=== PATIENT | female | born 1940 | race Two or more races ===

== ENCOUNTER 2019-12-20 15:24 | Inpatient (IN) ==
[2019-12-20] MEDS ORDERED: ACETAMINOPHEN 325 MG TABLET PO PRN (15:32)
[2019-12-20] MEDS ORDERED: ONDANSETRON 4 MG/2 ML VIAL IV PRN (15:32)
[2019-12-20 16:38] LABS: Basophils # 0.1 10*3/uL (0.0-0.2); Basophils % 0.4 % (0.0-0.8); Eosinophils # 0.1 10*3/uL (0.0-0.87); Eosinophils % 0.4 % (0.00-10.9); Hemoglobin 7.4 GM/DL (12.0-16.0); Immature Granulocytes % 1.2 %; Immature Granulocytes Absolute 0.22 #; Lymphocytes # 1.7 10*3/uL (1.4-4.0); Lymphocytes % 9.2 % (21.3-54.2); Mean Corpuscular HGB Conc 28.5 GM/DL (32-36); Mean Platelet Volume 12.2 FL (9.6-12.0); Monocytes % 3.9 % (1.7-12.7); Neutrophils % 84.9 % (38.7-73.9); Platelet Count 138 T/CUMM (130-400); Red Blood Count 2.43 MC/CUMM (3.8-5.5); Red Cell Distribution Width 18.2 % (9.3-17.3); White Blood Count 18.9 T/CUMM (4-12)
[2019-12-20] MEDS: SODIUM CHLORIDE 0.9% 1,000 ML IV SCH ×2 (16:53→21:17)
[2019-12-20 17:00] LABS: Albumin 1.9 G/DL (3.4-5.0); Bilirubin,Total 0.5 MG/DL (0.2-1.0); Calcium 7.7 MG/DL (8.5-10.1); Osmolality,Calculated 301.4 MOS/KG (273-304); Total Protein 5.3 G/DL (6.4-8.3)
[2019-12-20] MEDS ORDERED: SODIUM CHLORIDE 0.9% 1,000 ML IV PRN (17:06)
[2019-12-20] MEDS: DOCUSATE SODIUM 100 MG CAPSULE PO SCH (21:16)
[2019-12-21 06:50] LABS: Basophils # 0.1 10*3/uL (0.0-0.2); Basophils % 0.4 % (0.0-0.8); Eosinophils # 0.2 10*3/uL (0.0-0.87); Eosinophils % 0.9 % (0.00-10.9); Hematocrit 32.2 VOL% (35.7-47.0); Immature Granulocytes % 1.2 %; Lymphocytes # 2.1 10*3/uL (1.4-4.0); Lymphocytes % 12.5 % (21.3-54.2); Mean Corpuscular HGB Conc 31.7 GM/DL (32-36); Mean Corpuscular Volume 97.3 FL (87-102); Mean Platelet Volume 11.7 FL (9.6-12.0); Monocytes % 6.5 % (1.7-12.7); Neutrophils % 78.5 % (38.7-73.9); Red Cell Distribution Width 17.3 % (9.3-17.3); White Blood Count 16.9 T/CUMM (4-12)
[2019-12-21 06:52] LABS: Red Blood Count 3.31 MC/CUMM (3.8-5.5)
[2019-12-21 06:53] LABS: Hemoglobin 10.2 GM/DL (12.0-16.0); Platelet Count 104 T/CUMM (130-400)
[2019-12-21 09:01] LABS: Basophils # 0.1 10*3/uL (0.0-0.2); Basophils % 0.4 % (0.0-0.8); Eosinophils # 0.2 10*3/uL (0.0-0.87); Eosinophils % 0.9 % (0.00-10.9); Hematocrit 33.3 VOL% (35.7-47.0); Hemoglobin 10.4 GM/DL (12.0-16.0); Immature Granulocytes % 0.9 %; Immature Granulocytes Absolute 0.15 #; Lymphocytes # 1.7 10*3/uL (1.4-4.0); Lymphocytes % 10.4 % (21.3-54.2); Mean Corpuscular HGB Conc 31.2 GM/DL (32-36); Mean Corpuscular Volume 97.1 FL (87-102); Monocytes % 4.6 % (1.7-12.7); Neutrophils % 82.8 % (38.7-73.9); Platelet Count 103 T/CUMM (130-400); Red Blood Count 3.43 MC/CUMM (3.8-5.5); Red Cell Distribution Width 17.4 % (9.3-17.3); White Blood Count 16.2 T/CUMM (4-12)
[2019-12-21 09:21] LABS: Acanthocytes Few
[2019-12-21 09:22] LABS: Anisocytosis 1+; Polychromasia Slight
[2019-12-21 09:23] LABS: Platelet Estimate Decreased
[2019-12-21 09:35] LABS: Thyroid Stimulating Hormone 5.05 uIU/ml (0.358-3.74)
[2019-12-21 09:38] LABS: Calcium 7.5 MG/DL (8.5-10.1); Osmolality,Calculated 298.3 MOS/KG (273-304)
[2019-12-21] MEDS: SODIUM CHLORIDE 0.9% 1,000 ML IV SCH ×3 (09:45→17:33)
[2019-12-21] MEDS: PIPERACILLIN/TAZOBACTAM 3,375 MG in SODIUM CHLORIDE 0.9% 100 ML IV SCH ×2 (09:46→20:28)
[2019-12-21] MEDS: PANTOPRAZOLE 40 MG TABLET PO SCH (09:46)
[2019-12-21] MEDS: DOCUSATE SODIUM 100 MG CAPSULE PO SCH ×2 (09:46→20:28)
[2019-12-21 09:59] LABS: Sedimentation Rate-Westergren 34 MM/HR (0-30)
[2019-12-21 10:03] LABS: Folate 16.4 NG/ML (5.4-24.0); Vitamin B12 1275 PG/ML (211-911)
[2019-12-21 16:52] LABS: Bacteria,Urine Occasional /HPF (Few); Bilirubin,Urine Negative (Negative); Blood, Urine Moderate mg/dL (Negative); Glucose,Urine (UA) Negative (Negative); Ketones,Urine Negative (Negative); Mucus,Urine Occasional /LPF (Occasional); Nitrite,Urine Negative (Negative); Protein,Urine Negative; RBC,Urine 4 /HPF (0-4); Squamous Epithelial Cell,Urine Occasional /HPF (0-10); Urine Appearance Slightly Hazy (Clear); Urine Color Yellow (Yellow); Urine Specific Gravity 1.014 (1.001-1.035); Urine Urobilinogen < 2.0 EU/DL (0.2-1.0); WBC,Urine 5 /HPF (0-6)
[2019-12-22] MEDS: SODIUM CHLORIDE 0.9% 1,000 ML IV SCH ×4 (02:27→21:11)
[2019-12-22 04:46] LABS: Basophils # 0.1 10*3/uL (0.0-0.2); Basophils % 0.5 % (0.0-0.8); Eosinophils # 0.2 10*3/uL (0.0-0.87); Eosinophils % 1.4 % (0.00-10.9); Hematocrit 30.7 VOL% (35.7-47.0); Hemoglobin 9.4 GM/DL (12.0-16.0); Immature Granulocytes % 0.8 %; Lymphocytes # 1.7 10*3/uL (1.4-4.0); Lymphocytes % 12.5 % (21.3-54.2); Mean Corpuscular HGB Conc 30.6 GM/DL (32-36); Mean Corpuscular Volume 97.8 FL (87-102); Mean Platelet Volume 11.5 FL (9.6-12.0); Monocytes % 6.2 % (1.7-12.7); Neutrophils % 78.6 % (38.7-73.9); Platelet Count 110 T/CUMM (130-400); Red Blood Count 3.14 MC/CUMM (3.8-5.5); White Blood Count 13.3 T/CUMM (4-12)
[2019-12-22 05:05] LABS: Calcium 7.1 MG/DL (8.5-10.1); Osmolality,Calculated 299.8 MOS/KG (273-304)
[2019-12-22] MEDS: PIPERACILLIN/TAZOBACTAM 3,375 MG in SODIUM CHLORIDE 0.9% 100 ML IV SCH (09:32)
[2019-12-22] MEDS ORDERED: LIDOCAINE 2% 5 ML VIAL ONE (10:00)
[2019-12-22] MEDS ORDERED: ETOMIDATE 20 MG/10 ML VIAL IV ONE (10:00)
[2019-12-22] MEDS: DOCUSATE SODIUM 100 MG CAPSULE PO SCH ×2 (10:00→21:13)
[2019-12-22 11:44] LABS: Hemoglobin A1 (Alkaline) 97.8 % (96.5-98.5); Hemoglobin A2 (Alkaline) 2.2 % (1.5-3.5)
[2019-12-22] MEDS: LACTATED RINGERS 1,000 ML IV SCH (13:20)
[2019-12-22] MEDS: PANTOPRAZOLE 40 MG TABLET PO SCH (16:28)
[2019-12-23] MEDS: PIPERACILLIN/TAZOBACTAM 3,375 MG in SODIUM CHLORIDE 0.9% 100 ML IV SCH ×2 (00:21→12:41)
[2019-12-23] MEDS: SODIUM CHLORIDE 0.9% 1,000 ML IV SCH ×3 (03:00→18:47)
[2019-12-23 04:25] LABS: Basophils # 0.1 10*3/uL (0.0-0.2); Basophils % 0.6 % (0.0-0.8); Eosinophils # 0.2 10*3/uL (0.0-0.87); Eosinophils % 1.6 % (0.00-10.9); Hematocrit 36.9 VOL% (35.7-47.0); Immature Granulocytes % 0.6 %; Immature Granulocytes Absolute 0.08 #; Lymphocytes # 1.4 10*3/uL (1.4-4.0); Lymphocytes % 11.2 % (21.3-54.2); Mean Corpuscular HGB Conc 29.8 GM/DL (32-36); Mean Corpuscular Volume 102.8 FL (87-102); Mean Platelet Volume 11.1 FL (9.6-12.0); Monocytes % 7.5 % (1.7-12.7); Neutrophils % 78.5 % (38.7-73.9); Platelet Count 111 T/CUMM (130-400); Red Blood Count 3.59 MC/CUMM (3.8-5.5); Red Cell Distribution Width 18.3 % (9.3-17.3); White Blood Count 12.8 T/CUMM (4-12)
[2019-12-23 04:38] LABS: Calcium 7.3 MG/DL (8.5-10.1); Osmolality,Calculated 296.6 MOS/KG (273-304)
[2019-12-23] MEDS: LACTATED RINGERS 1,000 ML IV SCH (08:22)
[2019-12-23] MEDS: PANTOPRAZOLE 40 MG TABLET PO SCH (09:10)
[2019-12-23] MEDS: DOCUSATE SODIUM 100 MG CAPSULE PO SCH ×2 (09:48→22:04)
[2019-12-24] MEDS: PIPERACILLIN/TAZOBACTAM 3,375 MG in SODIUM CHLORIDE 0.9% 100 ML IV SCH ×2 (02:30→12:30)
[2019-12-24] MEDS: LACTATED RINGERS 1,000 ML IV SCH (09:14)
[2019-12-24] MEDS: PANTOPRAZOLE 40 MG TABLET PO SCH (09:20)
[2019-12-24] MEDS: DOCUSATE SODIUM 100 MG CAPSULE PO SCH ×2 (09:21→21:54)
[2019-12-24] MEDS: SODIUM CHLORIDE 0.9% 1,000 ML IV SCH ×2 (09:22→10:21)
[2019-12-25] MEDS: SODIUM CHLORIDE 0.9% 1,000 ML IV SCH ×3 (00:30→14:04)
[2019-12-25] MEDS: PIPERACILLIN/TAZOBACTAM 3,375 MG in SODIUM CHLORIDE 0.9% 100 ML IV SCH (00:30)
[2019-12-25 06:21] LABS: Basophils # 0.1 10*3/uL (0.0-0.2); Basophils % 0.7 % (0.0-0.8); Eosinophils # 0.3 10*3/uL (0.0-0.87); Eosinophils % 3.2 % (0.00-10.9); Hematocrit 31.6 VOL% (35.7-47.0); Hemoglobin 9.9 GM/DL (12.0-16.0); Immature Granulocytes % 0.6 %; Immature Granulocytes Absolute 0.05 #; Lymphocytes # 1.6 10*3/uL (1.4-4.0); Lymphocytes % 19.6 % (21.3-54.2); Mean Corpuscular HGB Conc 31.3 GM/DL (32-36); Mean Corpuscular Volume 96.6 FL (87-102); Mean Platelet Volume 10.7 FL (9.6-12.0); Monocytes % 8.3 % (1.7-12.7); Neutrophils % 67.6 % (38.7-73.9); Platelet Count 107 T/CUMM (130-400); Red Blood Count 3.27 MC/CUMM (3.8-5.5); Red Cell Distribution Width 18.8 % (9.3-17.3); White Blood Count 8.1 T/CUMM (4-12)
[2019-12-25] MEDS: LACTATED RINGERS 1,000 ML IV SCH (08:40)
[2019-12-25] MEDS ORDERED: CIPROFLOXACIN 500 MG TABLET PO SCH (09:00)
[2019-12-25] MEDS: DOCUSATE SODIUM 100 MG CAPSULE PO SCH (09:39)
[2019-12-25] MEDS: PANTOPRAZOLE 40 MG TABLET PO SCH (09:39)
[2019-12-25 11:48] LABS: Calcium 7.8 MG/DL (8.5-10.1); Osmolality,Calculated 288.7 MOS/KG (273-304)
[2019-12-25 11:50] VITALS: BP 102/57
== END 2019-12-25 15:32 | disposition swing bed (61) | DRG 369 ==
LOC: N.5E 16:09
PROVIDERS: ADMIT Internal Medicine; ATTEND Internal Medicine

== ENCOUNTER 2020-03-12 10:56 | Inpatient (IN) ==
[2020-03-12] MEDS ORDERED: LORazepam 2 MG/1 ML VIAL IV STA (11:08)
[2020-03-12 11:18] LABS: Basophils # 0.1 10*3/uL (0.0-0.2); Basophils % 0.9 % (0.0-0.8); Eosinophils # 0.2 10*3/uL (0.0-0.87); Eosinophils % 2.5 % (0.00-10.9); Hematocrit 35.4 VOL% (35.7-47.0); Immature Granulocytes % 0.9 %; Immature Granulocytes Absolute 0.07 #; Lymphocytes # 2.8 10*3/uL (1.4-4.0); Lymphocytes % 35.2 % (21.3-54.2); Mean Corpuscular HGB Conc 31.1 GM/DL (32-36); Mean Corpuscular Volume 95.7 FL (87-102); Mean Platelet Volume 9.8 FL (9.6-12.0); Monocytes % 10.4 % (1.7-12.7); Neutrophils % 50.1 % (38.7-73.9); Platelet Count 152 T/CUMM (130-400); Red Cell Distribution Width 15.4 % (9.3-17.3); White Blood Count 7.9 T/CUMM (4-12)
[2020-03-12] MEDS ORDERED: levETIRAcetam 500 MG/5 ML VIAL IV ONE (11:30)
[2020-03-12 11:42] LABS: Albumin 2.6 G/DL (3.4-5.0); Bilirubin,Total 0.8 MG/DL (0.2-1.0); Calcium 8.3 MG/DL (8.5-10.1); Osmolality,Calculated 281.3 MOS/KG (273-304); Total Protein 6.8 G/DL (6.4-8.3)
[2020-03-12 11:59] LABS: Bacteria,Urine Occasional /HPF (Few); Bilirubin,Urine Negative (Negative); Blood, Urine Negative (Negative); Glucose,Urine (UA) Negative (Negative); Hyaline Casts,Urine 1 /LPF (0-3); Ketones,Urine Negative (Negative); Mucus,Urine Occasional /LPF (Occasional); Nitrite,Urine Negative (Negative); Protein,Urine Negative; RBC,Urine 4 /HPF (0-4); Squamous Epithelial Cell,Urine Few /HPF (0-10); Urine Appearance Slightly Hazy (Clear); Urine Color Yellow (Yellow); Urine Specific Gravity 1.017 (1.001-1.035); WBC,Urine 1 /HPF (0-6)
[2020-03-12] MEDS ORDERED: hydrALAZINE 20 MG/1 ML VIAL IV STA (13:32)
[2020-03-12] MEDS ORDERED: ONDANSETRON 4 MG/2 ML VIAL IV PRN (13:42)
[2020-03-12] MEDS ORDERED: ACETAMINOPHEN 325 MG TABLET PO PRN (13:42)
[2020-03-12] MEDS: SODIUM CHLORIDE 0.9% 1,000 ML IV SCH ×2 (14:19→23:49)
[2020-03-12] MEDS: FERROUS SULFATE 325 MG TABLET PO SCH (20:11)
[2020-03-12] MEDS: DOCUSATE SODIUM 100 MG CAPSULE PO SCH (20:11)
[2020-03-12] MEDS: CALCIUM (CARBONATE)/VITAMIN D 500 MG-200 UNIT TABLET PO SCH (20:11)
[2020-03-13] MEDS: LEVOTHYROXINE 25 MCG TABLET PO SCH (05:47)
[2020-03-13 06:24] LABS: Calcium 7.8 MG/DL (8.5-10.1); Osmolality,Calculated 281.1 MOS/KG (273-304); Potassium 4.1 MMOL/L (3.5-5.1)
[2020-03-13] MEDS: CALCIUM (CARBONATE)/VITAMIN D 500 MG-200 UNIT TABLET PO SCH ×2 (08:16→20:53)
[2020-03-13] MEDS: DOCUSATE SODIUM 100 MG CAPSULE PO SCH ×2 (08:16→20:48)
[2020-03-13] MEDS: FERROUS SULFATE 325 MG TABLET PO SCH ×2 (08:16→20:49)
[2020-03-13] MEDS: PANTOPRAZOLE 40 MG TABLET PO SCH (08:16)
[2020-03-13 08:32] LABS: Basophils % 0.9 % (0.0-0.8); Eosinophils % 0.7 % (0.00-10.9); Hematocrit 29.6 VOL% (35.7-47.0); Hemoglobin 9.2 GM/DL (12.0-16.0); Immature Granulocytes % 0.4 %; Immature Granulocytes Absolute 0.02 #; Lymphocytes % 21.4 % (21.3-54.2); Mean Corpuscular HGB Conc 31.1 GM/DL (32-36); Mean Corpuscular Volume 95.2 FL (87-102); Mean Platelet Volume 10.9 FL (9.6-12.0); Monocytes % 10.4 % (1.7-12.7); Neutrophils % 66.2 % (38.7-73.9); Red Blood Count 3.11 MC/CUMM (3.8-5.5); Red Cell Distribution Width 15.4 % (9.3-17.3); White Blood Count 4.5 T/CUMM (4-12)
[2020-03-13 08:33] LABS: Platelet Count 110 T/CUMM (130-400)
[2020-03-13 08:51] LABS: Hypochromasia 1+; Microcytosis 1+
[2020-03-13 08:52] LABS: Platelet Estimate Decreased
[2020-03-13] MEDS: levETIRAcetam 500 MG TABLET PO SCH (20:48)
[2020-03-14] MEDS: LEVOTHYROXINE 25 MCG TABLET PO SCH (05:29)
[2020-03-14] MEDS: SODIUM CHLORIDE 0.9% 1,000 ML IV SCH ×2 (05:30→16:56)
[2020-03-14 06:46] LABS: Basophils # 0.1 10*3/uL (0.0-0.2); Eosinophils # 0.1 10*3/uL (0.0-0.87); Hematocrit 31.4 VOL% (35.7-47.0); Hemoglobin 9.8 GM/DL (12.0-16.0); Immature Granulocytes % 0.5 %; Immature Granulocytes Absolute 0.03 #; Lymphocytes # 1.2 10*3/uL (1.4-4.0); Lymphocytes % 18.6 % (21.3-54.2); Mean Corpuscular HGB Conc 31.2 GM/DL (32-36); Mean Corpuscular Volume 93.7 FL (87-102); Mean Platelet Volume 9.8 FL (9.6-12.0); Neutrophils % 68.9 % (38.7-73.9); Platelet Count 128 T/CUMM (130-400); Red Blood Count 3.35 MC/CUMM (3.8-5.5); Red Cell Distribution Width 15.1 % (9.3-17.3); White Blood Count 6.2 T/CUMM (4-12)
[2020-03-14 07:03] LABS: Calcium 8.3 MG/DL (8.5-10.1); Osmolality,Calculated 279.3 MOS/KG (273-304); Potassium 4.1 MMOL/L (3.5-5.1)
[2020-03-14] MEDS: DOCUSATE SODIUM 100 MG CAPSULE PO SCH ×2 (08:29→21:10)
[2020-03-14] MEDS: levETIRAcetam 500 MG TABLET PO SCH ×2 (08:29→21:10)
[2020-03-14] MEDS: CALCIUM (CARBONATE)/VITAMIN D 500 MG-200 UNIT TABLET PO SCH ×2 (08:29→21:11)
[2020-03-14] MEDS: PANTOPRAZOLE 40 MG TABLET PO SCH (08:29)
[2020-03-14] MEDS: FERROUS SULFATE 325 MG TABLET PO SCH ×2 (08:30→21:11)
[2020-03-15] MEDS: SODIUM CHLORIDE 0.9% 1,000 ML IV SCH ×3 (04:01→17:06)
[2020-03-15] MEDS: LEVOTHYROXINE 25 MCG TABLET PO SCH (05:40)
[2020-03-15 05:41] LABS: Basophils % 0.9 % (0.0-0.8); Eosinophils # 0.2 10*3/uL (0.0-0.87); Eosinophils % 5.1 % (0.00-10.9); Hematocrit 27.6 VOL% (35.7-47.0); Hemoglobin 8.7 GM/DL (12.0-16.0); Immature Granulocytes % 0.2 %; Immature Granulocytes Absolute 0.01 #; Lymphocytes # 0.9 10*3/uL (1.4-4.0); Lymphocytes % 20.6 % (21.3-54.2); Mean Corpuscular HGB Conc 31.5 GM/DL (32-36); Mean Corpuscular Volume 93.9 FL (87-102); Mean Platelet Volume 10.2 FL (9.6-12.0); Monocytes % 11.8 % (1.7-12.7); Neutrophils % 61.4 % (38.7-73.9); Platelet Count 107 T/CUMM (130-400); Red Blood Count 2.94 MC/CUMM (3.8-5.5); Red Cell Distribution Width 14.9 % (9.3-17.3); White Blood Count 4.3 T/CUMM (4-12)
[2020-03-15 06:05] LABS: Calcium 7.5 MG/DL (8.5-10.1); Osmolality,Calculated 279.3 MOS/KG (273-304)
[2020-03-15] MEDS: PANTOPRAZOLE 40 MG TABLET PO SCH (09:44)
[2020-03-15] MEDS: FERROUS SULFATE 325 MG TABLET PO SCH ×2 (09:44→20:13)
[2020-03-15] MEDS: levETIRAcetam 500 MG TABLET PO SCH ×2 (09:44→20:13)
[2020-03-15] MEDS: CALCIUM (CARBONATE)/VITAMIN D 500 MG-200 UNIT TABLET PO SCH ×2 (09:44→20:13)
[2020-03-15] MEDS: DOCUSATE SODIUM 100 MG CAPSULE PO SCH ×2 (09:44→20:13)
[2020-03-16 05:42] LABS: Eosinophils # 0.4 10*3/uL (0.0-0.87); Eosinophils % 8.9 % (0.00-10.9); Hematocrit 28.9 VOL% (35.7-47.0); Hemoglobin 8.9 GM/DL (12.0-16.0); Immature Granulocytes % 0.2 %; Immature Granulocytes Absolute 0.01 #; Lymphocytes # 0.8 10*3/uL (1.4-4.0); Lymphocytes % 19.6 % (21.3-54.2); Mean Corpuscular HGB Conc 30.8 GM/DL (32-36); Mean Corpuscular Volume 94.8 FL (87-102); Mean Platelet Volume 10.3 FL (9.6-12.0); Monocytes % 12.1 % (1.7-12.7); Neutrophils % 58.2 % (38.7-73.9); Platelet Count 101 T/CUMM (130-400); Red Blood Count 3.05 MC/CUMM (3.8-5.5); Red Cell Distribution Width 14.6 % (9.3-17.3); White Blood Count 4.1 T/CUMM (4-12)
[2020-03-16 06:00] LABS: Calcium 7.7 MG/DL (8.5-10.1); Osmolality,Calculated 283.8 MOS/KG (273-304); Potassium 3.9 MMOL/L (3.5-5.1)
[2020-03-16] MEDS: SODIUM CHLORIDE 0.9% 1,000 ML IV SCH ×2 (06:02→23:28)
[2020-03-16] MEDS: LEVOTHYROXINE 25 MCG TABLET PO SCH (06:02)
[2020-03-16] MEDS: DOCUSATE SODIUM 100 MG CAPSULE PO SCH ×2 (09:43→20:56)
[2020-03-16] MEDS: FERROUS SULFATE 325 MG TABLET PO SCH ×2 (09:43→20:56)
[2020-03-16] MEDS: levETIRAcetam 500 MG TABLET PO SCH ×2 (09:44→20:55)
[2020-03-16] MEDS: PANTOPRAZOLE 40 MG TABLET PO SCH (09:44)
[2020-03-16] MEDS: CALCIUM (CARBONATE)/VITAMIN D 500 MG-200 UNIT TABLET PO SCH ×2 (09:44→20:56)
[2020-03-16] MEDS: hydrALAZINE 20 MG/1 ML VIAL IV PRN (16:47)
[2020-03-17] MEDS: LEVOTHYROXINE 25 MCG TABLET PO SCH (06:08)
[2020-03-17] MEDS: hydrALAZINE 20 MG/1 ML VIAL IV PRN (06:08)
[2020-03-17] MEDS: PANTOPRAZOLE 40 MG TABLET PO SCH (09:28)
[2020-03-17] MEDS: levETIRAcetam 500 MG TABLET PO SCH (09:28)
[2020-03-17] MEDS: DOCUSATE SODIUM 100 MG CAPSULE PO SCH (09:28)
[2020-03-17] MEDS: FERROUS SULFATE 325 MG TABLET PO SCH (09:28)
[2020-03-17] MEDS: CALCIUM (CARBONATE)/VITAMIN D 500 MG-200 UNIT TABLET PO SCH (09:28)
[2020-03-17 12:04] VITALS: BP 137/88
== END 2020-03-17 15:20 | disposition home health service (06) | DRG 101 ==
LOC: N.3E 10:56 → N.ED 10:56 → OBSVTOIN 14:14 → N.3E 15:05
PROVIDERS: ADMIT Internal Medicine; ATTEND Internal Medicine